=== PATIENT | female | born 1940 | race Caucasian/White ===

== ENCOUNTER 2023-05-08 10:00 | Emergency (ER) | payer OTHER, MEDICARE ==
[2023-05-08] MEDS ORDERED: Acetaminophen 500 MG TAB ONE (10:49)
== END 2023-05-08 11:03 | disposition home or self-care (01) ==
LOC: ERS 10:00
DX: S16.1XXA Strain of muscle, fascia and tendon at neck level, initial encounter (principal); V89.2XXA Person injured in unspecified motor-vehicle accident, traffic, initial encounter
CPT/HCPCS: 72040; 80053; 82248; 83615; 84100; 84550

== ENCOUNTER 2023-06-21 10:20 | Outpatient (CLI) | payer MEDICARE ==
[2023-06-21 12:13] LABS: Hematocrit 40.3 % (34.9-44.5); Hemoglobin 12.7 g/dL (12.0-15.5); Mean Corpuscular HGB CONC 31.5 g/dL (32.0-36.0); Mean Corpuscular Hemoglobin 32.5 pg (27.0-33.0); Mean Corpuscular Volume 103.1 fl (81.6-98.3); Mean Platelet Volume 11.1 fl (7.4-10.4); Platelet Count 232 10x3/uL (150-450); RBC Distribution Width 13.8 % (11.5-14.5); Red Blood Cell (RBC) Count 3.91 10x6/uL (3.90-5.03); White Blood Cell (WBC) Count 4.8 10x3/uL (3.5-10.5)
[2023-06-21 12:34] LABS: Anion Gap 15 mmol/L (10-20); BUN (Urea Nitrogen) 14 mg/dL (9.8-20.1); Calc. Creatinine Clearance 0 mL/min (70-130); Calcium 8.9 mg/dL (7.8-10.44); Carbon Dioxide 23 mmol/L (23-31); Chloride 104 mmol/L (98-107); Estimated GFR 80; Glucose 119 mg/dL (83-110); Potassium 4.1 mmol/L (3.5-5.1); Sodium 138 mmol/L (136-145)
== END 2023-06-21 10:21 | disposition home or self-care (01) ==
LOC: LABBT 10:20
PROVIDERS: ATTEND Specialist
DX: Z01.818 Encounter for other preprocedural examination (principal)
CPT/HCPCS: 71046; 80048; 85027; 93005; 93010

== ENCOUNTER 2023-06-24 07:19 | Day surgery (SDC) | payer MEDICARE ==
[2023-06-21 11:28] VITALS: BMI 28.9
[2023-06-24] MEDS ORDERED: Ketorolac Tromethamine 30 MG/ML VIAL ONE (09:20)
[2023-06-24] MEDS ORDERED: Acetaminophen 500 MG TAB ONE (09:20)
[2023-06-24] MEDS ORDERED: fentaNYL PF 100 MCG/2 ML SYRINGE ONE (13:30)
[2023-06-24] MEDS ORDERED: Isosulfan Blue 50 MG/5 ML VIAL ONE (13:34)
[2023-06-24] MEDS ORDERED: Bupivacaine 0.25% HCL 30 ML VIAL ONE (13:34)
[2023-06-24] MEDS ORDERED: EPINEPHrine 1 MG/ML AMP ONE (13:34)
[2023-06-24] MEDS ORDERED: Lidocaine 2% PF 5 ML VIAL ONE (13:34)
[2023-06-24] MEDS ORDERED: CEFAZOLIN 2 GM VIAL ONE (13:49)
[2023-06-24] MEDS ORDERED: Sodium Chloride 0.9% 100 ML ONE (13:49)
[2023-06-24] MEDS ORDERED: PHENYLEPHRINE-NS 100 MCG/ML 10 ML SYRINGE ONE (14:06)
[2023-06-24] MEDS ORDERED: ePHEDrine Sulfate 50 MG/10 ML VIAL ONE ×2 (14:06→14:26)
[2023-06-24] MEDS ORDERED: PROPOFOL 200 MG/20 ML VIAL ONE (14:06)
[2023-06-24] MEDS ORDERED: NEOSTIGMINE 3 MG/3 ML SYR 3 MG/3 ML SYRINGE ONE (14:06)
[2023-06-24] MEDS ORDERED: Dexamethasone 20 MG/5 ML VIAL ONE (14:06)
[2023-06-24] MEDS ORDERED: Ondansetron PF 4 MG/2 ML Vial ONE (14:06)
[2023-06-24] MEDS ORDERED: Lidocaine 1% PF 5 ML VIAL ONE (14:06)
[2023-06-24] MEDS ORDERED: Glycopyrrolate 0.2 MG/ML 5 ML SYRINGE ONE (14:06)
== END 2023-06-24 18:10 | disposition home or self-care (01) ==
LOC: SDC 07:19
PROVIDERS: ATTEND Specialist
PROC: 0HBU0ZZ Excision of Left Breast, Open Approach (ICD-10-PCS; principal; 2023-06-24)
PROC: 07B60ZX Excision of Left Axillary Lymphatic, Open Approach, Diagnostic (ICD-10-PCS; 2023-06-24)
DX: C50.412 Malignant neoplasm of upper-outer quadrant of left female breast (principal); Z17.0 Estrogen receptor positive status [ER+]; Z88.2 Allergy status to sulfonamides; Z88.1 Allergy status to other antibiotic agents
CPT/HCPCS: 19301; 38525; 38900; 76098; 78195; A9541; C1713; Q9968; 88307; 88342; J0171; J1100; J1885; J2001; J2405; J2704; J3490; S0020

== ENCOUNTER 2023-07-25 11:38 | Observation (INO) | payer MEDICARE ==
[2023-07-25] MEDS ORDERED: Acetaminophen 500 MG TAB ONE (12:28)
[2023-07-25] MEDS ORDERED: Ketorolac Tromethamine 30 MG/ML VIAL ONE (12:28)
[2023-07-25] MEDS ORDERED: Ropivacaine 0.5% HCl/PF (150 MG/30 ML VIAL) ONE (13:03)
[2023-07-25] MEDS ORDERED: fentaNYL 50 mcg/mL 1 mL Vial ONE ×2 (13:03→17:55)
[2023-07-25] MEDS ORDERED: fentaNYL PF 100 MCG/2 ML SYRINGE ONE (14:39)
[2023-07-25] MEDS ORDERED: Sodium Chloride 0.9% 100 ML ONE (14:54)
[2023-07-25] MEDS ORDERED: CEFAZOLIN 2 GM VIAL ONE (14:54)
[2023-07-25] MEDS ORDERED: PHENYLEPHRINE-NS 100 MCG/ML 10 ML SYRINGE ONE (15:04)
[2023-07-25] MEDS ORDERED: Ondansetron PF 4 MG/2 ML Vial ONE (15:04)
[2023-07-25] MEDS ORDERED: PROPOFOL 200 MG/20 ML VIAL ONE (15:04)
[2023-07-25] MEDS ORDERED: Lidocaine 1% PF 5 ML VIAL ONE (15:04)
[2023-07-25] MEDS ORDERED: Dextrose 50% Abboject 50 ML SYRINGE SLOW IVP PRN (17:40)
[2023-07-25] MEDS ORDERED: Ipratropium/Albuterol 3 ML NEB NEB PRN (17:40)
[2023-07-25] MEDS ORDERED: hydrALAZINE 20 MG/ML VIAL SLOW IVP PRN (17:40)
[2023-07-25] MEDS ORDERED: Dextrose 5% in Water 1,000 ML IV PRN (17:40)
[2023-07-25] MEDS ORDERED: HYDROcodone/Acetaminophen 10/325 mg Tablet PO PRN (17:40)
[2023-07-25] MEDS ORDERED: Morphine 4 MG/ML VIAL SLOW IVP PRN (17:40)
[2023-07-25] MEDS ORDERED: Promethazine HCl 25 MG/ML VIAL IVPB PRN (17:40)
[2023-07-25] MEDS ORDERED: Ondansetron PF 4 MG/2 ML Vial IVP PRN (17:40)
[2023-07-25] MEDS ORDERED: Glucagon 1 MG/ML KIT IM PRN (17:40)
[2023-07-25] MEDS ORDERED: Morphine 2 MG/ML VIAL SLOW IVP PRN (17:40)
[2023-07-25] MEDS: D5 1/2 NS w/20 mEq KCL 1,000 ML IV SCH (19:56)
[2023-07-25 20:49] VITALS: BMI 28.1
[2023-07-25] MEDS: Famotidine 20 MG TAB PO SCH (21:14)
[2023-07-26 06:37] LABS: #Monocytes 0.5 thou/uL (0.11-0.59); #Neutrophils 7.4 thou/uL (1.40-6.50); %Basophils 0.3 % (0.0-1.0); %Lymphocytes 9.9 % (21.0-51.0); %Monocytes 5.2 % (0.0-10.0); %Neutrophils 84.1 % (42.0-75.0); Hemoglobin 11.9 g/dL (12.0-16.0); Mean Corpuscular HGB CONC 33.1 g/dL (32.0-36.0); Mean Corpuscular Hemoglobin 32.7 pg (27.0-31.0); Mean Corpuscular Volume 98.9 fl (78.0-98.0); Mean Platelet Volume 11.4 fL (7.4-10.4); Platelet Count 185 10x3/uL (130-400); RBC Distribution Width 12.7 % (11.5-14.5); Red Blood Cell (RBC) Count 3.64 mill/uL (4.20-5.40); White Blood Cell (WBC) Count 8.8 10x3/uL (4.8-10.8)
[2023-07-26 07:44] VITALS: BP 136/65; TEMP 98
[2023-07-26] MEDS: Famotidine 20 MG TAB PO SCH (08:11)
[2023-07-26] MEDS: D5 1/2 NS w/20 mEq KCL 1,000 ML IV SCH (08:12)
== END 2023-07-26 10:07 | disposition home or self-care (01) ==
LOC: SDC 11:38 → MSONC 17:31
PROVIDERS: ADMIT Specialist; ATTEND Specialist
PROC: 0HTU0ZZ Resection of Left Breast, Open Approach (ICD-10-PCS; principal; 2023-07-25)
DX: D05.02 Lobular carcinoma in situ of left breast (principal); Z88.1 Allergy status to other antibiotic agents; Z88.2 Allergy status to sulfonamides; Z88.5 Allergy status to narcotic agent
CPT/HCPCS: 19303; 85025; J3010; 88307; 88309; 88341; 88342; J1642; J1885; J2405; J2704; J2795; J3480; J3490

== ENCOUNTER 2023-09-19 13:10 | Outpatient (CLI) | payer MEDICARE | END 2023-09-19 13:11 | disposition home or self-care (01) | LOC: ULT 13:10 | PROVIDERS: ATTEND Internal Medicine | DX: Z51.11 Encounter for antineoplastic chemotherapy (principal); C50.412 Malignant neoplasm of upper-outer quadrant of left female breast; I34.0 Nonrheumatic mitral (valve) insufficiency; Z79.899 Other long term (current) drug therapy | CPT/HCPCS: 93306 ==

== ENCOUNTER → 2024-03-17 | Day surgery (SDC) | payer MEDICARE ==
[~2024-03-17] MED LIST: Iopamidol 30 ML ONE; Lidocaine 2% 6 ML (Jelly) SYR ONE
== END ==
LOC: RAD 08:50
PROVIDERS: ATTEND Internal Medicine
PROC: 3E0 Administration, Physiological Systems and Anatomical Regions, Introduction (ICD-10-PCS; principal; 2024-03-17)
DX: T82.594A Other mechanical complication of infusion catheter, initial encounter (principal); C50.412 Malignant neoplasm of upper-outer quadrant of left female breast; Y71.2 Prosthetic and other implants, materials and accessory cardiovascular devices associated with adverse incidents; Z88.1 Allergy status to other antibiotic agents; Z88.2 Allergy status to sulfonamides
CPT/HCPCS: 36598; J1642; Q9967

== ENCOUNTER 2024-08-04 08:47 | Outpatient (CLI) | payer MEDICARE | END 2024-08-04 08:48 | disposition home or self-care (01) | LOC: BICMAMMO 08:47 | PROVIDERS: ATTEND Specialist | DX: Z08 Encounter for follow-up examination after completed treatment for malignant neoplasm (principal); Z85.3 Personal history of malignant neoplasm of breast | CPT/HCPCS: 77065; G0279 ==